=== PATIENT | female | born 1985 | race Asian ===

== ENCOUNTER → 2017-11-06 | Outpatient (CLI) | payer OTHER ==
[~2017-11-06] MED LIST: IBU600 MG PO; LAN-O-SOOTHE1 OIN TP; MAALOX PLUS 3030 ML PO; MILK OF MAGNESI30 ML PO; PRENATAL VITAMI1 TA5 PO; TUCKS50% TP
== END ==
LOC: SUN.DIA 10:20
DX: Z01.89 Encounter for other specified special examinations (principal)

== ENCOUNTER → 2017-11-11 | Outpatient (CLI) | payer BC | LOC: SUN.DIA 13:45 | DX: O24.419 Gestational diabetes mellitus in pregnancy, unspecified control (principal); Z3A.30 30 weeks gestation of pregnancy; Z71.3 Dietary counseling and surveillance | CPT/HCPCS: G0108 ==

== ENCOUNTER → 2017-11-25 | Outpatient (CLI) | payer BC | LOC: SUN.DIA 13:52 | DX: O24.419 Gestational diabetes mellitus in pregnancy, unspecified control (principal); Z3A.32 32 weeks gestation of pregnancy; Z71.3 Dietary counseling and surveillance | CPT/HCPCS: G0108 ==

== ENCOUNTER → 2017-12-09 | Outpatient (CLI) | payer BC | LOC: SUN.DIA 14:37 | DX: O24.419 Gestational diabetes mellitus in pregnancy, unspecified control (principal); Z3A.34 34 weeks gestation of pregnancy; Z71.3 Dietary counseling and surveillance | CPT/HCPCS: G0108 ==

== ENCOUNTER → 2017-12-23 | Outpatient (CLI) | payer BC | LOC: SUN.DIA 10:09 | DX: O24.419 Gestational diabetes mellitus in pregnancy, unspecified control (principal); Z3A.36 36 weeks gestation of pregnancy; Z71.3 Dietary counseling and surveillance | CPT/HCPCS: G0108 ==

== ENCOUNTER 2018-01-11 05:04 | Inpatient (IN) | payer BC ==
[2018-01-11] VITALS (11 sets, daily range): BP systolic 94–134; BP diastolic 55–70; PULSE 64–91; TEMP 97.3–98.2
[2018-01-11 06:13] LABS: BASO % 0.4 % (0.0-2.0); EOS % 0.3 % (0-4.0); GRAN # 5.2 (1.4-6.5); GRAN % 65.6 % (42.2-75.2); HEMATOCRIT 35.4 % (37.0-47.0); HEMOGLOBIN 12.1 g/dl (12.5-16.0); LYMPH # 1.9 (1.2-3.4); LYMPH % 24.1 % (20.0-51.0); MEAN CELL VOLUME 90 fl (80.0-100.0); MEAN CORPUSCULAR HEMOGLOBIN 31 pg (27.0-31.0); MEAN CORPUSCULAR HGB CONC 34 g/dl (33.0-37.0); MEAN PLATELET VOLUME 10.6 fl (7.4-10.4); MONO # 0.7 (0.1-0.6); PLATELET COUNT 199 K/mm3 (130-400); RED BLOOD COUNT 3.94 M/mm3 (4.10-5.30); REDCELL DISTRIBUTION WIDTH-CV 12.6 % (11.5-14.5)
[2018-01-12 00:05] VITALS: BP 106/52; BP 113/69; PULSE 68; PULSE 78; TEMP 97.8; TEMP 98.5
[2018-01-12 04:03] VITALS: BP 99/61; PULSE 65; TEMP 97.5
[2018-01-12 06:38] LABS: HEMATOCRIT 29.6 % (37.0-47.0); HEMOGLOBIN 10.1 g/dl (12.5-16.0)
[2018-01-12 07:13] VITALS: BP 93/48; PULSE 63; TEMP 97.4
[2018-01-12] MEDS ORDERED: MOTRIN 800800 MG/TAB PO (09:04)
== END 2018-01-12 12:32 | disposition home or self-care (01) | DRG 775 ==
LOC: LDRO 05:04 → LDR 05:05 → OB 08:00
PROVIDERS: Obstetrics & Gynecology
PROC: 10E0XZZ Delivery of Products of Conception, External Approach (ICD-10-PCS; principal; 2018-01-11)
DX: O24.420 Gestational diabetes mellitus in childbirth, diet controlled (principal); Z3A.38 38 weeks gestation of pregnancy; Z37.0 Single live birth; O62.3 Precipitate labor
CPT/HCPCS: J2590

== ENCOUNTER → 2018-08-03 | Outpatient (CLI) | payer BC ==
[~2018-08-03] MED LIST changes: +MOTRIN 800800 MG/TAB PO
== END ==
LOC: MC.RAD 09:00
DX: O91.23 Nonpurulent mastitis associated with lactation (principal); Z3A.00 Weeks of gestation of pregnancy not specified